=== PATIENT | female | born 1995 | race Caucasian/White ===

== ENCOUNTER 2016-08-07 23:47 | Emergency (ER) | payer OTHER ==
--- NOTE | 2016-08-08 03:23 | ED NURSING NOTES ---
Clinical Report - Nurses [facility] [address] [place] [address] 08/07/2016 23:51 Patient: MAURY WALTON TRIAGE Triage time 02:50. Acuity: LEVEL 5. Chief Complaint: (cat bite to left finger, now has tingling in fingers and pain in left forearm). --02:54 Yoselin Pitt R.N. 02:50 08/08/16. BP: 107/68. HR: 54. RR: 16. O2 saturation: 100%. Temp: 98 F. Vera-Garcia pain scale: 0/10. --02:54 Yoselin Pitt R.N. Weight: 46.7 kg stated. Height/Length: 60 inches Per Patient. BMI: 20.1. Growth Chart Percentile: Weight: 5.9%. Height/Length: 4.6%. --02:51 Yoselin Pitt R.N. Medications Control Pills. --02:51 Yoselin Pitt R.N. Allergies No Known Drug Allergy. --02:51 Yoselin Pitt R.N. History Arrived by private vehicle. Historian: patient. Primary physician (Prakash). 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 Treatment TYPEWRITER ALIGNER: None. PAST MEDICAL HX: Immunizations: up-to-date. Last normal menstrual period was 3 weeks ago. Uses control pills. SOCIAL HX: Light tobacco smoker (cigarette)- less than 1/2 a pack per day. Occasional alcohol use. History of occasional drug use: marijuana. NUTRITIONAL RISK ASSESSMENT: The nutritional risk assessment revealed no deficiencies. FUNCTIONAL ASSESSMENT: Functional assessment: no impairments noted. --02:54 Yoselin Pitt R.N. PROBLEMS: no known problems. ADDITIONAL SURGERIES: Dental Surgery. --02:52 Yoselin Pitt R.N. Interventions ID band on patient. To treatment room. --02:54 Yoselin Pitt R.N. PHYSICAL ASSESSMENT Ambulatory to room. GENERAL / NEURO / PSYCH: Alert. Oriented X 4. Appears in no acute distress. HEENT: Mucous membranes are pink. RESPIRATORY: Respirations not labored. CVS: Capillary refill less than 2 seconds. SKIN: Skin is warm and dry. --02:56 Yoselin Pitt R.N. NURSING PROGRESS NOTES Head of bed elevated. Two patient identifiers checked. Call light placed in reach. Side rails up x 1. Bed placed in lowest position. Brakes of bed on. --02:56 Yoselin Pitt R.N. Patient ready for evaluation- chart flagged. --02:56 Yoselin Pitt R.N. DISPOSITION / DISCHARGE Condition at departure: stable. No learning barriers present. Discharge instructions provided and reviewed with the patient. Reviewed medication(s) side effects, precautions, dosing and course information. Prescription(s) given to the glue spreader. Patient verbalized understanding. Written instructions provided in Martiniquais. The patient was discharged home and accompanied by glue spreader. She left the Emergency Department ambulatory and via private vehicle. Storm Door Maker driving. --03:39 Yoselin Pitt R.N. 03:38 08/08/16. BP: deferred. HR: deferred. RR: 15 (regular and unlabored). O2 saturation: deferred. Temp: deferred. Vera-Garcia pain scale: 09/14. --03:39 Yoselin Pitt R.N. Locked/Released at 08/08/2016 3:39 by Yoselin Pitt R.N.
--- NOTE | 2016-08-08 03:23 | ED NURSING NOTES ---
Clinical Report - Nurses [facility] [address] [place] [address] 08/07/2016 23:51 Patient: MAURY WALTON TRIAGE Triage time 02:50. Acuity: LEVEL 5. Chief Complaint: (cat bite to left finger, now has tingling in fingers and pain in left forearm). --02:54 Yoselin Pitt R.N. 02:50 08/08/16. BP: 107/68. HR: 54. RR: 16. O2 saturation: 100%. Temp: 98 F. Vera-Garcia pain scale: 0/10. --02:54 Yoselin Pitt R.N. Weight: 46.7 kg stated. Height/Length: 60 inches Per Patient. BMI: 20.1. Growth Chart Percentile: Weight: 5.9%. Height/Length: 4.6%. --02:51 Yoselin Pitt R.N. Medications Control Pills. --02:51 Yoselin Pitt R.N. Allergies No Known Drug Allergy. --02:51 Yoselin Pitt R.N. History Arrived by private vehicle. Historian: patient. Primary physician (Prakash). 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 Treatment FACING CUTTING MACHINE OPERATOR: None. PAST MEDICAL HX: Immunizations: up-to-date. Last normal menstrual period was 3 weeks ago. Uses control pills. SOCIAL HX: Light tobacco smoker (cigarette)- less than 1/2 a pack per day. Occasional alcohol use. History of occasional drug use: marijuana. NUTRITIONAL RISK ASSESSMENT: The nutritional risk assessment revealed no deficiencies. FUNCTIONAL ASSESSMENT: Functional assessment: no impairments noted. --02:54 Yoselin Pitt R.N. PROBLEMS: no known problems. ADDITIONAL SURGERIES: Dental Surgery. --02:52 Yoselin Pitt R.N. Interventions ID band on patient. To treatment room. --02:54 Yoselin Pitt R.N. PHYSICAL ASSESSMENT Ambulatory to room. GENERAL / NEURO / PSYCH: Alert. Oriented X 4. Appears in no acute distress. HEENT: Mucous membranes are pink. RESPIRATORY: Respirations not labored. CVS: Capillary refill less than 2 seconds. SKIN: Skin is warm and dry. --02:56 Yoselin Pitt R.N. NURSING PROGRESS NOTES Head of bed elevated. Two patient identifiers checked. Call light placed in reach. Side rails up x 1. Bed placed in lowest position. Brakes of bed on. --02:56 Yoselin Pitt R.N. Patient ready for evaluation- chart flagged. --02:56 Yoselin Pitt R.N. DISPOSITION / DISCHARGE Condition at departure: stable. No learning barriers present. Discharge instructions provided and reviewed with the patient. Reviewed medication(s) side effects, precautions, dosing and course information. Prescription(s) given to the document restorer. Patient verbalized understanding. Written instructions provided in Serbian. The patient was discharged home and accompanied by document restorer. She left the Emergency Department ambulatory and via private vehicle. Distance Education Faculty Liaison driving. --03:39 Yoselin Pitt R.N. 03:38 08/08/16. BP: deferred. HR: deferred. RR: 15 (regular and unlabored). O2 saturation: deferred. Temp: deferred. Vera-Garcia pain scale: 09/14. --03:39 Yoselin Pitt R.N. Locked/Released at 08/08/2016 3:39 by Yoselin Pitt R.N.
--- NOTE | 2016-08-08 03:23 | ED CLINICAL REPORT ---
Clinical Report - Physicians/Mid Levels [facility] [address] [place] [address] 08/07/2016 23:51 Patient: MAURY WALTON Time Seen: 03:03; initial patient contact. Arrived- By private vehicle. Historian- patient. HISTORY OF PRESENT ILLNESS Chief Complaint: CAT BITE. Location of injuries- left 3rd finger. The injury occurred just prior to arrival. The animal reportedly appeared well, is up to date on immunizations and can be observed for ten days. Occurred at home. This was a "provoked" attack. The patient has not had swelling or drainage. Treatment PURCHASE REQUEST EDITOR- none. REVIEW OF SYSTEMS No swelling, numbness, tingling, fever or chills. All systems otherwise negative, except as recorded above. PAST HISTORY See nurses notes. Tetanus immunization status is up-to-date. Problems: no known problems. Medications: Control Pills. Allergies: No Known Drug Allergy. SOCIAL HISTORY Light tobacco smoker. Occasional alcohol use. History of drug use: marijuana. PHYSICAL EXAM Appearance: Alert. Oriented X3. No acute distress. CVS: Heart sounds normal. Rate normal. Respiratory: No respiratory distress. Breath sounds normal. Skin: Single small superficial puncture wound with tenderness on the left middle finger. No erythema or increased warmth. Neuro: Oriented X 3. PROGRESS AND PROCEDURES Course of Care: 08/08/2016 02:50 BP: 107/68. HR: 54. RR: 16. O2 saturation: 100%. Temp: 98 F. Vera-Garcia pain scale: 0/10. Vital Signs: have been reviewed. Blood pressure normal. Bradycardic. Respiratory rate normal. Temperature normal. Oxygen saturation normal. Disposition: Discharged home in good condition. Condition: good. CLINICAL IMPRESSION Single superficial cat bite to the left middle finger. No bite with injury to the left fingernails. INSTRUCTIONS Your Current Medications: CONTINUE TAKING THE FOLLOWING MEDICATIONS: Control Pills*. Prescription Medications: Augmentin 875 mg: take 1 tablet orally every 12 hours for 7 days. No refill. Substitution is permissible. Follow-up: Follow up with your doctor in about two days. Call for an appointment. Screening today revealed the patient's blood pressure to be in the normal range. (Electronically signed by Wade Prasad Dr. 08/08/2016 10:59)
--- NOTE | 2016-08-08 03:23 | ED CLINICAL REPORT ---
Clinical Report - Physicians/Mid Levels [facility] [address] [place] [address] 08/07/2016 23:51 Patient: MAURY WALTON Time Seen: 03:03; initial patient contact. Arrived- By private vehicle. Historian- patient. HISTORY OF PRESENT ILLNESS Chief Complaint: CAT BITE. Location of injuries- left 3rd finger. The injury occurred just prior to arrival. The animal reportedly appeared well, is up to date on immunizations and can be observed for ten days. Occurred at home. This was a "provoked" attack. The patient has not had swelling or drainage. Treatment LATIN DANCER- none. REVIEW OF SYSTEMS No swelling, numbness, tingling, fever or chills. All systems otherwise negative, except as recorded above. PAST HISTORY See nurses notes. Tetanus immunization status is up-to-date. Problems: no known problems. Medications: Control Pills. Allergies: No Known Drug Allergy. SOCIAL HISTORY Light tobacco smoker. Occasional alcohol use. History of drug use: marijuana. PHYSICAL EXAM Appearance: Alert. Oriented X3. No acute distress. CVS: Heart sounds normal. Rate normal. Respiratory: No respiratory distress. Breath sounds normal. Skin: Single small superficial puncture wound with tenderness on the left middle finger. No erythema or increased warmth. Neuro: Oriented X 3. PROGRESS AND PROCEDURES Course of Care: 08/08/2016 02:50 BP: 107/68. HR: 54. RR: 16. O2 saturation: 100%. Temp: 98 F. Vera-Garcia pain scale: 0/10. Vital Signs: have been reviewed. Blood pressure normal. Bradycardic. Respiratory rate normal. Temperature normal. Oxygen saturation normal. Disposition: Discharged home in good condition. Condition: good. CLINICAL IMPRESSION Single superficial cat bite to the left middle finger. No bite with injury to the left fingernails. INSTRUCTIONS Your Current Medications: CONTINUE TAKING THE FOLLOWING MEDICATIONS: Control Pills*. Prescription Medications: Augmentin 875 mg: take 1 tablet orally every 12 hours for 7 days. No refill. Substitution is permissible. Follow-up: Follow up with your doctor in about two days. Call for an appointment. Screening today revealed the patient's blood pressure to be in the normal range. (Electronically signed by Wade Prasad Dr. 08/08/2016 10:59)
--- NOTE | 2016-08-08 10:59 | ED DISCHARGE INSTRUCTIONS ---
Patient: MAURY WALTON General Instructions [facility] VisitID: [id number] [place] [address] 20y, F Registration Date/Time: 08/07/2016 Single superficial cat bite to the left middle finger. No bite with injury to the left fingernails. INSTRUCTIONS Your Current Medications: CONTINUE TAKING THE FOLLOWING MEDICATIONS: Control Pills*. Prescription Medications: Augmentin 875 mg: take 1 tablet orally every 12 hours for 7 days. No refill. Substitution is permissible. Follow-up: Follow up with your doctor in about two days. Call for an appointment. Screening today revealed the patient's blood pressure to be in the normal range. ADDITIONAL INFORMATION Animal Bite, General If you have been bitten by an animal and the wound is deep enough to break the skin, an infection may occur. Therefore, watch for the warning signs listed below. If a cut (laceration) was present, the doctor may not close the wound completely. This is to allow fluid to drain in the event of an infection. Home Care: Watch the wound for signs of infection listed below which may begin within6 hours after the bite and progress rapidly. In certain types of bites, antibiotics may be prescribed. Begin taking these as soon as possible until they are all gone. Rabies Prevention If you live in an area where rabies occurs in the wild animals, if you were bitten by a dog, cat, skunk, raccoon, romo, coyote, bobcat, woodchuck, bat, or other meat-eating animal, there may be some risk to you of getting the rabies virus. If a healthy-looking pet dog or cat has bitten you, it should be kept in a secure area for the next 10 days to watch for signs of illness. (If the pet bus attendant wont cooperate with you, contact the animal control department.) If the dog or cat becomes ill or dies during that time, contact your county animal control department at once so the animal may be tested for rabies. If the pet stays healthy for the next10 days, there is no danger of rabies in the animal or you. Pets fully vaccinated against rabies (2 shots) are at very low risk of infection; however, because human rabies is almost always fatal,any biting pet should be confined for10 days as an extra precaution. If astray pet bit you, contact the animal control department. They can provide information on capture, quarantine, and animal rabies testing. If you are unable to locate the animal that bit you in the next2 days, and if rabies exists in your region, you must be evaluated for the rabies vaccine series. Contact your doctor or return here promptly. All animal bites should be reported to the [facility] animal control department. If you were not given a form to fill out, you can report this yourself. Follow Up with your doctor or this facility as directed. Most skin wounds heal [id number] days. However, an infection may occur even with proper treatment. Check your wound every 6 hours for the first 2 days, then at least once a day for the next several days for the signs of infection listed below. Get Prompt Medical Attention if any of the following occur: Signs of infection: Spreading redness from the wound Increased pain or swelling Fever of 100.4F (38C) or higher, or as directed by your healthcare provider Colored fluid or pus draining from the wound Headache, confusion, strange behavior, or seizure (signs of a rabies infection) Cat Bite If a cat has bitten you and the wound is deep enough to break the skin, an infection may occur. Therefore, watch for the warning signs listed below. The doctor may not close the wound completely. This allows fluid to drain in the event of an infection. Home Care Watch the wound for signs of infection listed below, which may begin within6 hours after the bite and progress rapidly. If antibiotics were prescribed, begin taking them as soon as possible. Take these as directed until they are all gone. Rabies Prevention If you live in an area where rabies occurs in wild animals, the rabies virus can be passed to cats and dogs. An infected animal can pass the virus to you during a bite. If ahealthy-looking pet cat has bitten you, it should be kept in a secure area for the next 10 days to watch for signs of illness. If the pets bus attendant wont cooperate with you, contact the [facility] animal control department (or local law enforcement). If the animal becomes ill or dies within 10 days, contact your [facility] animal control department at once. The animal must be tested for rabies. If the animal stays healthy for the next10 days, then there is no danger of rabies in the cat or you. Pets fully vaccinated against rabies (2 shots) are at very low risk for the infection. However, because human rabies is usually fatal, any biting pet cat should be confined for 10 days as an extra precaution. If a stray cat has bitten you, contact the [facility]. They can provide information on capture, quarantine, and animal rabies testing. If you are unable to locate the animal that bit you in the next2 days, you must be evaluated for the rabies vaccination series within 3days after the bite. Contact your doctor or return to this facility promptly, to arrange this. All animal bites should be reported to your [facility] animal control department. If you were not given a form to fill out, call the [facility] animal control department to report it yourself. Follow Up with your doctor or this facility as directed. Most skin wounds heal within 10 days. However, an infection may occur even with proper treatment. Check your wound every 6 hours for the first 2 days, then at least once a day for the next few days for the signs of infection listed below. Get Prompt Medical Attention if any of the following occur: Signs of infection: Spreading redness Increased pain or swelling Fever of 100.4F (37C) or higher, or as directed by your healthcare provider Colored fluid or pus draining from the wound The biting animal becomes sick or dies Headache, confusion, strange behavior, or a seizure (signs of a rabies infection) Amoxicillin Trihydrate, Clavulanate Potassium Oral tablet What is this medicine? AMOXICILLIN; CLAVULANIC ACID (a mox i YOLI in; JHONNY maldonadoo yanet ic id) is a penicillin antibiotic. It is used to treat certain kinds of bacterial infections. It will not work for colds, flu, or other viral infections. How should I use this medicine? Take this medicine by mouth with a full glass of water. Follow the directions on the prescription label. Take at the start of a meal. Do not crush or chew. If the tablet has a score line, you may cut it in half at the score line for easier swallowing. Take your medicine at regular intervals. Do not take your medicine more often than directed. Take all of your medicine as directed even if you think you are better. Do not skip doses or stop your medicine early. Talk to your residential appliance repair technician regarding the use of this medicine in children. Special care may be needed. What side effects may I notice from receiving this medicine? Side effects that you should report to your doctor or health senior care assistant as soon as possible: allergic reactions like skin rash, itching or hives, swelling of the face, lips, or tongue breathing problems dark urine fever or chills, sore throat redness, blistering, peeling or loosening of the skin, including inside the mouth seizures trouble passing urine or change in the amount of urine unusual bleeding, bruising unusually weak or tired white patches or sores in the mouth or throat Side effects that usually do not require medical attention (report to your doctor or health senior care assistant if they continue or are bothersome): diarrhea dizziness headache nausea, vomiting stomach upset vaginal or anal irritation What may interact with this medicine? allopurinol anticoagulants control pills methotrexate probenecid What if I miss a dose? If you miss a dose, take it as soon as you can. If it is almost time for your next dose, take only that dose. Do not take double or extra doses. Where should I keep my medicine? Keep out of the reach of children. Store at room temperature below 25 degrees C (77 degrees F). Keep container tightly closed. Throw away any unused medicine after the expiration date. What should I tell my health care provider before I take this medicine? They need to know if you have any of these conditions: bowel disease, like colitis kidney disease liver disease mononucleosis an unusual or allergic reaction to amoxicillin, penicillin, cephalosporin, other antibiotics, clavulanic acid, other medicines, foods, dyes, or preservatives or trying to get breast-feeding What should I watch for while using this medicine? Tell your doctor or health senior care assistant if your symptoms do not improve. Do not treat diarrhea with over the counter products. Contact your doctor if you have diarrhea that lasts more than 2 days or if it is severe and watery. If you have diabetes, you may get a false-positive result for sugar in your urine. Check with your doctor or health senior care assistant. control pills may not work properly while you are taking this medicine. Talk to your doctor about using an extra method of control. You have been given the following additional information: Animal Bite, General Cat Bite Amoxicillin Trihydrate, Clavulanate Potassium Oral tablet (Electronically signed by Wade Prasad Dr. 08/08/2016 10:59)
--- NOTE | 2016-08-08 10:59 | ED MAR SUMMARY ---
..... Medication Administration Record [facility] [address] [place], [place] [id number] Patient: MAURY WALTON Visit ID: [id number] 20y, F Weight: 46.7 kg Height/Length: 60 in BMI: 20.1 ALLERGIES: No Known Drug Allergy
--- NOTE | 2016-08-08 10:59 | ED MED RECONCILIATION SUMMARY ---
Patient: MAURY WALTON Medication Reconciliation Report [facility] VisitID: [id number] [address] [place] [address] 20y, F Registration Date/Time: 08/07/2016 Weight: 46.7 kg Height/Length: 60 in. BMI: 20.1 ALLERGIES: No Known Drug Allergy The patient's Home Medications are listed below: CONTINUE TAKING THE FOLLOWING MEDICATIONS: Control Pills The source(s) of the original Home Medication information: Not obtained. The following Medications were given to the patient in the Emergency Department: None. The following Medications were prescribed to the patient: Augmentin 875 mg: take 1 tablet orally every 12 hours for 7 days. No refill. Substitution is permissible. -- Wade Prasad Dr.
--- NOTE | 2016-08-08 10:59 | ED MED RECONCILIATION SUMMARY ---
Patient: MAURY WALTON Medication Reconciliation Report [facility] VisitID: [id number] [address] [place] [address] 20y, F Registration Date/Time: 08/07/2016 Weight: 46.7 kg Height/Length: 60 in. BMI: 20.1 ALLERGIES: No Known Drug Allergy The patient's Home Medications are listed below: CONTINUE TAKING THE FOLLOWING MEDICATIONS: Control Pills The source(s) of the original Home Medication information: Not obtained. The following Medications were given to the patient in the Emergency Department: None. The following Medications were prescribed to the patient: Augmentin 875 mg: take 1 tablet orally every 12 hours for 7 days. No refill. Substitution is permissible. -- Wade Prasad Dr.
--- NOTE | 2016-08-08 10:59 | ED MAR SUMMARY ---
..... Medication Administration Record [facility] [address] [place], [place] [id number] Patient: MAURY WALTON Visit ID: [id number] 20y, F Weight: 46.7 kg Height/Length: 60 in BMI: 20.1 ALLERGIES: No Known Drug Allergy
--- NOTE | 2016-08-08 10:59 | ED DISCHARGE INSTRUCTIONS ---
Patient: MAURY WALTON General Instructions [facility] VisitID: [id number] [place] [address] 20y, F Registration Date/Time: 08/07/2016 Single superficial cat bite to the left middle finger. No bite with injury to the left fingernails. INSTRUCTIONS Your Current Medications: CONTINUE TAKING THE FOLLOWING MEDICATIONS: Control Pills*. Prescription Medications: Augmentin 875 mg: take 1 tablet orally every 12 hours for 7 days. No refill. Substitution is permissible. Follow-up: Follow up with your doctor in about two days. Call for an appointment. Screening today revealed the patient's blood pressure to be in the normal range. ADDITIONAL INFORMATION Animal Bite, General If you have been bitten by an animal and the wound is deep enough to break the skin, an infection may occur. Therefore, watch for the warning signs listed below. If a cut (laceration) was present, the doctor may not close the wound completely. This is to allow fluid to drain in the event of an infection. Home Care: Watch the wound for signs of infection listed below which may begin within6 hours after the bite and progress rapidly. In certain types of bites, antibiotics may be prescribed. Begin taking these as soon as possible until they are all gone. Rabies Prevention If you live in an area where rabies occurs in the wild animals, if you were bitten by a dog, cat, skunk, raccoon, romo, coyote, bobcat, woodchuck, bat, or other meat-eating animal, there may be some risk to you of getting the rabies virus. If a healthy-looking pet dog or cat has bitten you, it should be kept in a secure area for the next 10 days to watch for signs of illness. (If the pet body maker wont cooperate with you, contact the animal control department.) If the dog or cat becomes ill or dies during that time, contact your county animal control department at once so the animal may be tested for rabies. If the pet stays healthy for the next10 days, there is no danger of rabies in the animal or you. Pets fully vaccinated against rabies (2 shots) are at very low risk of infection; however, because human rabies is almost always fatal,any biting pet should be confined for10 days as an extra precaution. If astray pet bit you, contact the animal control department. They can provide information on capture, quarantine, and animal rabies testing. If you are unable to locate the animal that bit you in the next2 days, and if rabies exists in your region, you must be evaluated for the rabies vaccine series. Contact your doctor or return here promptly. All animal bites should be reported to the [facility] animal control department. If you were not given a form to fill out, you can report this yourself. Follow Up with your doctor or this facility as directed. Most skin wounds heal [id number] days. However, an infection may occur even with proper treatment. Check your wound every 6 hours for the first 2 days, then at least once a day for the next several days for the signs of infection listed below. Get Prompt Medical Attention if any of the following occur: Signs of infection: Spreading redness from the wound Increased pain or swelling Fever of 100.4F (38C) or higher, or as directed by your healthcare provider Colored fluid or pus draining from the wound Headache, confusion, strange behavior, or seizure (signs of a rabies infection) Cat Bite If a cat has bitten you and the wound is deep enough to break the skin, an infection may occur. Therefore, watch for the warning signs listed below. The doctor may not close the wound completely. This allows fluid to drain in the event of an infection. Home Care Watch the wound for signs of infection listed below, which may begin within6 hours after the bite and progress rapidly. If antibiotics were prescribed, begin taking them as soon as possible. Take these as directed until they are all gone. Rabies Prevention If you live in an area where rabies occurs in wild animals, the rabies virus can be passed to cats and dogs. An infected animal can pass the virus to you during a bite. If ahealthy-looking pet cat has bitten you, it should be kept in a secure area for the next 10 days to watch for signs of illness. If the pets body maker wont cooperate with you, contact the [facility] animal control department (or local law enforcement). If the animal becomes ill or dies within 10 days, contact your [facility] animal control department at once. The animal must be tested for rabies. If the animal stays healthy for the next10 days, then there is no danger of rabies in the cat or you. Pets fully vaccinated against rabies (2 shots) are at very low risk for the infection. However, because human rabies is usually fatal, any biting pet cat should be confined for 10 days as an extra precaution. If a stray cat has bitten you, [facility]. They can provide information on capture, quarantine, and animal rabies testing. If you are unable to locate the animal that bit you in the next2 days, you must be evaluated for the rabies vaccination series within 3days after the bite. Contact your doctor or return to this facility promptly, to arrange this. All animal bites should be reported to your [facility] animal control department. If you were not given a form to fill out, call the [facility] animal control department to report it yourself. Follow Up with your doctor or this facility as directed. Most skin wounds heal within 10 days. However, an infection may occur even with proper treatment. Check your wound every 6 hours for the first 2 days, then at least once a day for the next few days for the signs of infection listed below. Get Prompt Medical Attention if any of the following occur: Signs of infection: Spreading redness Increased pain or swelling Fever of 100.4F (37C) or higher, or as directed by your healthcare provider Colored fluid or pus draining from the wound The biting animal becomes sick or dies Headache, confusion, strange behavior, or a seizure (signs of a rabies infection) Amoxicillin Trihydrate, Clavulanate Potassium Oral tablet What is this medicine? AMOXICILLIN; CLAVULANIC ACID (a mox i YOLI in; JHONNY maldonadoo yanet ic id) is a penicillin antibiotic. It is used to treat certain kinds of bacterial infections. It will not work for colds, flu, or other viral infections. How should I use this medicine? Take this medicine by mouth with a full glass of water. Follow the directions on the prescription label. Take at the start of a meal. Do not crush or chew. If the tablet has a score line, you may cut it in half at the score line for easier swallowing. Take your medicine at regular intervals. Do not take your medicine more often than directed. Take all of your medicine as directed even if you think you are better. Do not skip doses or stop your medicine early. Talk to your janitor supervisor regarding the use of this medicine in children. Special care may be needed. What side effects may I notice from receiving this medicine? Side effects that you should report to your doctor or health child care teacher as soon as possible: allergic reactions like skin rash, itching or hives, swelling of the face, lips, or tongue breathing problems dark urine fever or chills, sore throat redness, blistering, peeling or loosening of the skin, including inside the mouth seizures trouble passing urine or change in the amount of urine unusual bleeding, bruising unusually weak or tired white patches or sores in the mouth or throat Side effects that usually do not require medical attention (report to your doctor or health child care teacher if they continue or are bothersome): diarrhea dizziness headache nausea, vomiting stomach upset vaginal or anal irritation What may interact with this medicine? allopurinol anticoagulants control pills methotrexate probenecid What if I miss a dose? If you miss a dose, take it as soon as you can. If it is almost time for your next dose, take only that dose. Do not take double or extra doses. Where should I keep my medicine? Keep out of the reach of children. Store at room temperature below 25 degrees C (77 degrees F). Keep container tightly closed. Throw away any unused medicine after the expiration date. What should I tell my health care provider before I take this medicine? They need to know if you have any of these conditions: bowel disease, like colitis kidney disease liver disease mononucleosis an unusual or allergic reaction to amoxicillin, penicillin, cephalosporin, other antibiotics, clavulanic acid, other medicines, foods, dyes, or preservatives or trying to get breast-feeding What should I watch for while using this medicine? Tell your doctor or health child care teacher if your symptoms do not improve. Do not treat diarrhea with over the counter products. Contact your doctor if you have diarrhea that lasts more than 2 days or if it is severe and watery. If you have diabetes, you may get a false-positive result for sugar in your urine. Check with your doctor or health child care teacher. control pills may not work properly while you are taking this medicine. Talk to your doctor about using an extra method of control. You have been given the following additional information: Animal Bite, General Cat Bite Amoxicillin Trihydrate, Clavulanate Potassium Oral tablet (Electronically signed by Wade Prasad Dr. 08/08/2016 10:59)
== END 2016-08-08 03:38 | disposition home or self-care (01) ==
LOC: ED SRH 23:47
DX: S61.253A Open bite of left middle finger without damage to nail, initial encounter (principal); W55.01XA Bitten by cat, initial encounter; Y93.9 Activity, unspecified; Y99.9 Unspecified external cause status; Y92.009 Unspecified place in unspecified non-institutional (private) residence as the place of occurrence of the external cause; F17.210 Nicotine dependence, cigarettes, uncomplicated; F12.10 Cannabis abuse, uncomplicated